=== PATIENT | female | born 1985 | race Caucasian/White ===

== ENCOUNTER 2019-04-08 12:07 | Emergency (ER) | payer OTHER ==
[2019-04-08 13:18] LABS: ABSOLUTE BASOPHILS # (AUTO) 0.1 10^3/uL (0.0-0.2); ABSOLUTE EOSINOPHILS # (AUTO) 0.1 10^3/uL (0.0-0.6); ABSOLUTE LYMPHOCYTES (AUTO) 1.9 10^3/uL (0.5-4.7); ABSOLUTE MONOCYTES (AUTO) 0.5 10^3/uL (0.1-1.4); ABSOLUTE NEUT (AUTO) 8.1 10^3/uL (1.7-8.2); BASOPHILS % (AUTO) 0.6 % (0-2); EOSINOPHILS % (AUTO) 0.6 % (0-6); HEMOGLOBIN 15.7 g/dL (12.0-15.5); MEAN CORPUSCULAR HEMOGLOBIN 30.7 pg (27.0-33.4); MEAN CORPUSCULAR HGB CONC 34.2 g/dL (32.0-36.0); MEAN CORPUSCULAR VOLUME 90 fl (80-97); MONOCYTES % (AUTO) 4.4 % (3-13); PLATELET COUNT 261 10^3/uL (150-450); RED BLOOD COUNT 5.13 10^6/uL (3.72-5.28); RED CELL DISTRIBUTION WIDTH 12.6 % (11.5-14.0); SEGMENTED NEUTROPHILS % (AUTO) 76.4 % (42-78); TOTAL CELLS COUNTED % (AUTO) 100 %; WHITE BLOOD COUNT 10.6 10^3/uL (4.0-10.5)
[2019-04-08 13:30] LABS: ALBUMIN 4.3 g/dL (3.5-5.0); ALKALINE PHOSPHATASE 62 U/L (38-126); ANION GAP 10 (5-19); ASPARTATE AMINO TRANSFERASE 19 U/L (14-36); BILIRUBIN,DIRECT 0.1 mg/dL (0.0-0.4); BILIRUBIN,TOTAL 0.7 mg/dL (0.2-1.3); BLOOD UREA NITROGEN 11 mg/dL (7-20); CALCIUM 9.5 mg/dL (8.4-10.2); CARBON DIOXIDE 25 mmol/L (22-30); CHLORIDE 103 mmol/L (98-107); GLUCOSE 88 mg/dL (75-110); POTASSIUM 4.5 mmol/L (3.6-5.0); TOTAL PROTEIN 7.3 g/dL (6.3-8.2)
[2019-04-08 13:31] LABS: ACETAMINOPHEN < 10 ug/mL (10-30); ALCOHOL < 10 mg/dL (NONE DETECTED); SALICYLATE < 1.0 mg/dL (2.0-20.0)
[2019-04-08 13:33] LABS: APPEARANCE,URINE SLIGHTLY-CLOUDY; BILIRUBIN,URINE NEGATIVE (NEGATIVE); COLOR,URINE YELLOW; GLUCOSE, URINE NEGATIVE (NEGATIVE); KETONES,URINE 80 mg/dL (NEGATIVE); LEUKOCYTE ESTERASE,URINE NEGATIVE (NEGATIVE); NITRITE,URINE NEGATIVE (NEGATIVE); PROTEIN,URINE 30 mg/dL (NEGATIVE); URINE SPECIFIC GRAVITY 1.025; UROBILINOGEN,URINE NEGATIVE mg/dL (<2.0)
[2019-04-08 13:38] LABS: URINE AMPHETAMINES SCREEN NEGATIVE; URINE BARBITURATES SCREEN NEGATIVE; URINE BENZODIAZEPINES SCREEN NEGATIVE; URINE COCAINE SCREEN NEGATIVE; URINE METHADONE SCREEN NEGATIVE; URINE PHENCYCLIDINE SCREEN NEGATIVE
[2019-04-08 13:39] LABS: URINE MARIJUANA (THC) SCREEN UNCONFIRMED POSITIVE
[2019-04-08] MEDS ORDERED: CHLORPROMAZINE HCL INJ 25 MG/1 ML AMPULE IV PRN (16:19)
--- NOTE | 2019-04-08 16:27 | ER Document Report ---
ED Psych Disorder / Suicide - General Chief Complaint: Suicidal Ideation Stated Complaint: IVC W/ PAPERS Time Seen by Provider: 04/08/19 12:16 Mode of Arrival: Medic Information source: Patient TRAVEL OUTSIDE OF THE [place] IN LAST 30 DAYS: No - HPI Notes: 34-year-old female presents to the emergency room on IVC paperwork by the [place] for 2 suicide attempts in the last 72 hours including pills and drugs per IVC paperwork . 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 Patient does have a history of depression. Denies fevers, chills, chest pain,palpitations, shortness of breath, dyspnea, nausea, vomiting, diarrhea, abdominal pain, hematuria,blurred vision, double vision, loss of vision, speech changes, LH, dizziness, syncope, headaches, wheezing, neck pain, weakness, bowel or bladder dysfunction, saddle anesthesia, numbness or tingling in bilateral upper or lower extremities equally, muscle paralysis, weakness in bilateral upper or lower extremities equally or rash. - Related Data Allergies/Adverse Reactions: amoxicillin [Amoxicillin] Allergy (Mild, Verified 03/02/14 14:23) doxycycline [Doxycycline] Allergy (Mild, Verified 03/02/14 14:23) Penicillins Allergy (Mild, Verified 03/02/14 14:23) Home Medications: Seroquil 25mg daily, Neurontin 300mg BID, Paxil 20mg Daily, Prilosec, Carafate, Bentyl. Past Medical History - General Information source: Patient - Social History Smoking Status: Unknown if Ever Smoked Drug Abuse: Other Family History: None, Reviewed & Not Pertinent Patient has suicidal ideation: Yes Patient has homicidal ideation: No Psychiatric Medical History: Reports: Hx Anxiety, Hx Depression, Hx Schizoaffective Disorder, Hx Schizophrenia Past Surgical History: Reports: Hx Myringotomy, Hx Tonsillectomy - Immunizations Hx Diphtheria, Pertussis, Tetanus Vaccination: Yes Review of Systems - Review of Systems Constitutional: No symptoms reported EENT: No symptoms reported Cardiovascular: No symptoms reported Respiratory: No symptoms reported Gastrointestinal: No symptoms reported Genitourinary: No symptoms reported Female Genitourinary: No symptoms reported Musculoskeletal: No symptoms reported Skin: No symptoms reported Hematologic/Lymphatic: No symptoms reported Neurological/Psychological: Suicidal ideation Physical Exam - Vital signs Vitals: Temp Pulse Resp BP Pulse Ox 98.2 F 86 16 119/86 H 98 04/08/19 13:02 04/08/19 13:02 04/08/19 13:02 04/08/19 13:02 04/08/19 13:02 - Notes Notes: PHYSICAL EXAMINATION: reviewed vital signs by RN GENERAL: Well-appearing, well-nourished and in no acute distress. HEAD: Atraumatic, normocephalic. EYES: Pupils equal round and reactive to light, extraocular movements intact, conjunctiva are normal. ENT: Nares patent, oropharynx clear without exudates. Moist mucous membranes. NECK: Normal range of motion, supple without lymphadenopathy LUNGS: Breath sounds clear to auscultation bilaterally and equal. No wheezes rales or rhonchi. HEART: Regular rate and rhythm without murmurs ABDOMEN: Soft, nontender, nondistended abdomen. No guarding, no rebound. No masses appreciated. Female : deferred Musculoskeletal: Normal range of motion, no pitting or edema. No cyanosis. NEUROLOGICAL: Cranial nerves grossly intact. Normal speech, normal gait. Normal sensory, motor exams PSYCH: anxious, labile SKIN: Warm, Dry, normal turgor, no rashes or lesions noted. Course - Re-evaluation Re-evalutation: 04/08/19 16:28 Afebrile vital stable mental health at bedside to discuss plan of care with patient. Patient remains between yelling and screaming to sleeping. CBC negative for leukocytosis or anemia, CMP negative for hepatic or renal deficiencies, no electrolyte disturbances. Urinalysis does show some ketones and proteinuria. Urine drug screen positive for marijuana. EKG negative for acute STEMI, no states that changes. [facility] patient did receive Thorazine 50 mg IM due to being agitated. On reevaluation patient is resting, afebrile and in no distress. - Vital Signs Vital signs: Temp Pulse Resp BP Pulse Ox 98.2 F 86 16 119/86 H 98 04/08/19 13:09 04/08/19 13:09 04/08/19 13:09 04/08/19 13:09 04/08/19 13:02 - Laboratory Result Diagrams: 04/08/19 12:57 04/08/19 12:57 Laboratory results interpreted by me: 04/08/19 04/08/1919 12:57 12:57 12:57 WBC 10.6 H Hgb 15.7 H Urine Protein 30 H Urine Ketones 80 H Salicylates < 1.0 L Acetaminophen < 10 L Discharge - Discharge Clinical Impression: Suicidal ideation Condition: Stable Disposition: PSYCH HOSP/UNIT
[2019-04-08] MEDS: BENZTROPINE MESYLATE 1 MG TABLET PO SCH (16:29)
[2019-04-08] MEDS: CHLORPROMAZINE HCL INJ 25 MG/1 ML AMPULE IM PRN (16:33)
[2019-04-08] MEDS: OLANZAPINE 5 MG TABLET PO SCH (18:06)
--- NOTE | 2019-04-08 19:59 | PSYCHOLOGICAL NOTE ---
Psych Note - Psych Note Date seen by psych provider: 04/08/19 Time seen by psych provider: 17:00 Psych Note: Collateral information obtained from [employer] [place] employee. Patient presented to [place] for appointment. 34-year-old female presents to the emergency room on IVC pa perwork by the [place] for 2 suicide attempts in the last 72 hours including pills and alcohol. Patient's mother committed suicide by the same means on 12/2018. 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 Patient was initially hostile due to a reported unpleasant encounter with a nurse. Patient stated she did not trust staff with her care due to that experience. Patient stated she "fought for this [facility]" and expressed displeasure with the treatment she had received. Clinician left room to allow patient the opportunity to calm and center. Patient reaffirmed a desire to , yet reaches out and expresses a desire for help. Patient escalated and was approached by Dr. Frost who was able to calm patient. After patient was calm, she expresses stress related to her being deployed, mother committing suicide and the recent of her dog. Much of the interaction was spent using Rogerian techniques to build rapport and trust. Patient was able to engage with clinician, attending physician, and clinician. Patient is alert and oriented to person, place, time and circumstance. Mood labile with congruent affect. Patient endorses suicidal ideation. Patient denies homicidal ideation. Delusions are absent and behavior is congruent with an intact reality based presentation (i.e. organized and linear thought processes). Patient denies auditory and visual hallucinations. There is no observed behavior that suggests patient is responding to internal stimuli. Eye contact is good. Conversational speech is within normal rate, tone, and prosody- however pressured at times. Intellectual ability appears to be within average range. Attention and concentration are fair. Insight, judgment, and impulse control are poor. DSM Diagnosis: Per report, PTSD Medication recommendations per [facility] contracted psychiatrist Dr. Junito KOROMA is as follows: Add Cogentin 1MG, daily Add Throazine 50MG, as needed Add Zyprexa 5MG, twice daily Add Clonidine 0.1MG, at night Impression/Plan: Patient is not cleared from acute psychiatric services. Patient does meet IVC criteria per [place] GS 122C. Patient Dr. Frost was consulted on the care and management of this patient; attending physician is in agreement with recommendations and disposition
--- NOTE | 2019-04-08 20:14 | EKG REPORT ---
SEVERITY:- BORDERLINE ECG - SINUS ARRHYTHMIA, RATE 56-77 PROBABLE LEFT ATRIAL ABNORMALITY : Confirmed by: Silvia Leung MD 08-Apr-2019 20:13:29
[2019-04-08] MEDS: CLONIDINE HCL 0.1 MG TABLET PO SCH (23:31)
[2019-04-09] MEDS: BENZTROPINE MESYLATE 1 MG TABLET PO SCH (10:37)
[2019-04-09] MEDS: OLANZAPINE 5 MG TABLET PO SCH ×2 (10:38→17:47)
[2019-04-09] MEDS ORDERED: IBUPROFEN 600 MG TABLET PO ONE (15:48)
[2019-04-09] MEDS ORDERED: ACETAMINOPHEN 325 MG TABLET PO ONE (15:48)
--- NOTE | 2019-04-09 15:53 | ER Document Report ---
Doctor's Note Notes: 04/09/19 15:51 PHYSICAL EXAMINATION: GENERAL: Appears well, healthy, well-nourished, no acute distress. LUNGS: Equal breath sounds bilaterally and clear to auscultation. No wheezes rales or rhonchi. CARDIOVASCULAR: S1-S2, regular rate, regular rhythm. Radial pulses 2+, normal. ABDOMEN: Normoactive bowel sounds. Soft, nontender, no guarding, no rebound tenderness, and no masses palpated. PSYCH: Normal mood, normal affect. 04/09/19 15:52 I have evaluated the patient and the patient denies any suicidal or homicidal ideation at this time. Labs reviewed and patient was positive for marijuana. Patient states that she feels better now. She has ketones in her urine. She states that she has a headache. Patient has been drinking water with no difficulty. I have encouraged the patient to stay well-hydrated. I was asked by the nursing staff to call and update the . I attempted to call the and there was no answer and the voicemail box was not set up. Discussed this case with mental health. Patient will be here for another 24 hours.
[2019-04-09] MEDS ORDERED: PANTOPRAZOLE SODIUM 40 MG TABLET.DR PO ONE (16:03)
[2019-04-09] MEDS: CHLORPROMAZINE HCL INJ 25 MG/1 ML AMPULE IM PRN (16:22)
[2019-04-09] MEDS ORDERED: CHLORPROMAZINE HCL 25 MG TABLET PO PRN (17:32)
[2019-04-09] MEDS: CLONIDINE HCL 0.1 MG TABLET PO SCH (21:35)
[2019-04-09] MEDS: CHLORPROMAZINE HCL 50 MG TABLET PO PRN (22:05)
[2019-04-10] MEDS: CHLORPROMAZINE HCL 50 MG TABLET PO PRN (08:36)
[2019-04-10] MEDS: BENZTROPINE MESYLATE 1 MG TABLET PO SCH (10:21)
[2019-04-10] MEDS: OLANZAPINE 5 MG TABLET PO SCH (10:21)
--- NOTE | 2019-04-10 17:20 | ER Document Report ---
Doctor's Note Notes: 04/10/19 17:19 Patient evaluated. Patient without complaints. Vitals stable. Lungs clear to auscultation bilaterally.RRR. Patient to be discharged per psychiatric recommendations. [facility]
[2019-04-10 17:40] VITALS: BP 114/76
== END 2019-04-10 17:40 | disposition home or self-care (01) ==
LOC: ER 12:07
DX: R45.851 Suicidal ideations (principal); F32.9 Major depressive disorder, single episode, unspecified; R51 Headache; F43.10 Post-traumatic stress disorder, unspecified; Z88.0 Allergy status to penicillin
CPT/HCPCS: 93005; 99285; 36415; 80307 ×4; 85025; 80053; 81001; 93010; J3230; J3490